=== PATIENT | female | born 1995 | race African-American/Black ===

== ENCOUNTER 2016-05-16 02:14 | Emergency (ER) | payer OTHER, MEDICAID ==
[~2016-05-16] VITALS: Ht 154.9 cm; Wt 102.1 kg
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
== END 2016-05-16 03:28 | disposition home or self-care (01) ==
LOC: ER 02:20
DX: S50.12XA Contusion of left forearm, initial encounter (principal); S20.212A Contusion of left front wall of thorax, initial encounter; S70.11XA Contusion of right thigh, initial encounter; V40.6XXA Car passenger injured in collision with pedestrian or animal in traffic accident, initial encounter; Y92.410 Unspecified street and highway as the place of occurrence of the external cause; Y99.8 Other external cause status
CPT/HCPCS: 71020; 73090; 99283